=== PATIENT | female | born 1980 | race Caucasian/White ===

== ENCOUNTER 2019-12-24 11:37 | Emergency (ER) | payer MEDICAID, SELFPAY ==
[2019-12-24 11:56] VITALS: BP 113/85; PULSE 78; RESP 18; TEMP 36.8; O2SAT 98; BMI 25.8
--- NOTE | 2019-12-24 12:07 | ED_ITS ---
HPI - General Adult General: Chief complaint: General Medical Stated complaint: [facility] Time Seen by Provider: 12/24/19 12:06 Source: patient Mode of arrival: ambulatory Limitations: no limitations History of Present Illness: HPI narrative: Patient is a resident of [facility]. Patient reports that she has been without her normal dose of levothyroxine. Patient states that when she was discharged from a stress unit she was released on 75 mcg of thyroid medication. Patient states that usually she takes 200 mcg. Patient is wanting evaluated to get her levothyroxine adjusted due to feelings of chilling and feeling tired. Patient was out 3 to 4 days prior to being started on the 75 mcg of levothyroxine. Patient has been on levothyroxine for the last 2 days. Review of Systems General: Reports: 10 or more systems reviewed and unremarkable except in HPI and below Const: Reports: chills and fatigue PFS ED PFSH: Social History Smoking and tobacco status: current every day smoker Female Reproductive History: Date of last menstrual period: 12/24/19 Physical Exam Const: COMMON NORMALS: no acute distress and patient oriented x3 GENERAL APPEARANCE: cooperative HENMT: COMMON NORMALS: normocephalic and Normal external nose present HEAD & SCALP: normal to inspection and normocephalic NOSE: Normal external nose present MOUTH: Normal oral and palatal mucosa present THROAT: posterior oropharynx normal Eye: GENERAL EYE: appearance normal, both eyes and all related structures Neck/C-Spine: COMMON NORMALS: full ROM Chest: COMMONS NORMALS: normal inspection of the chest Resp: COMMON NORMALS: normal respiratory effort EFFORT & INSPECTION: Yes able to speak in complete sentences Cardio: COMMON NORMALS: regular rate and regular rhythm RATE: regular rate RHYTHM: regular rhythm GI: COMMON NORMALS: non-tender : COMMON NORMALS: Yes no CVA tenderness BLADDER/KIDNEY EXAM: Yes no CVA tenderness Back/Pelvis: COMMON NORMALS: no CVA tenderness and thoracic and lumbar spine normal to inspection Extremity: COMMON NORMALS: normal to inspection Neuro: COMMON NORMALS: patient oriented x3 and moves all extremities Psych: COMMON NORMALS: mental status grossly normal and cooperative Skin: COMMON NORMALS: no rashes or lesions noted GENERAL SKIN EXAM: no rashes or lesions noted Course Vital Signs: Vital signs: Vital Signs Temperature 98.3 F 12/24/19 11:56 Pulse Rate 78 12/24/19 11:56 Respiratory Rate 18 12/24/19 11:56 Blood Pressure 113/85 12/24/19 11:56 Pulse Oximetry 98 12/24/19 11:56 MDM - General Adult MDM Narrative: Medical decision making narrative: Patient comes in for adjustment of levothyroxine due to chills and fatigue. Patient reported history of thyroid removal and changes in medication which she thought was not appropriate to her care. Patient had recently got out of the stress unit and medications were changed from levothyroxine 200 mcg to levothyroxine 75 mcg. Exam notes respirations are even lungs are clear to auscultation. Vital signs are normal. Patient appears well. Differential diagnosis includes hypothyroidism, malingering, substance abuse. TSH showed a level of 11.63. We will adjust levothyroxine to 150 mcg daily. Patient should recheck in 1 to 2 weeks with primary care for repeat lab work and medication changes as needed. Lab Data: Labs: Lab Results 12/24/19 12/24/19 Range/Units 12:20 12:20 WBC 5.9 (4.0-10.0) 10^3/ uL RBC 4.14 (4.1-5.3) 10^6/u L Hgb 12.5 (11.5-15.3) g/dL Hct 39.8 (37.0-47.0) % MCV 96.1 (81-99) fL MCH 30.2 (28.0-34.0) pg MCHC 31.4 (30.0-36.0) g/dL RDW 12.0 L (12.1-15.1) % Plt Count 285 (130-400) 10^3/c mm MPV 9.9 (7.4-10.4) fL Neut % (Auto) 39.1 % Lymph % (Auto) 46.1 % [place] % (Auto) 7.8 % Eos % (Auto) 5.6 % Baso % (Auto) 1.2 % Neut # (Auto) 2.3 (1.8-7.7) 10^3/u L Lymph # (Auto) 2.7 (0.8-4.8) 10^3/u L [place] # (Auto) 0.5 (0.2-0.9) 10^3/u L Eos # (Auto) 0.3 (0.0-0.8) 10^3/u L Baso # (Auto) 0.1 (0.0-0.1) 10^3/u L Nucleated RBC % (a uto) 0 % Nucleated RBCs # 0.0 /100WBC Sodium 139 (136-145) mmol/L Potassium 4.2 (3.5-5.1) mmol/L Chloride 107 (98-107) mmol/L Carbon Dioxide 24 (22-29) mmol/L Anion Gap 12.2 (5-19) BUN 10 (6-20) mg/dL Creatinine 0.8 (0.5-0.9) mg/dL GFR Calculation 79.4 L (90-130) mL/min Glucose 81 (65-115) mg/dL Calculated Osmolal ity 283 L (285-295) mOsm/k g Calcium 9.0 (8.5-10.5) mg/dL TSH 11.63 H (0.27-4.20) uIU/ mL Discharge Plan Discharge Patient Disposition: Home, Self-Care Clinical Impression: Hypothyroidism (acquired) Condition: Stable Prescriptions: New levothyroxine 150 mcg tablet 150 mcg PO DAILY Qty: 30 RF: 1 Discontinued levothyroxine 75 mcg Tablet 75 mcg PO DAILY RF: 0 No Action Klonopin 1 mg Tablet 1 mg PO BID RF: 0 Lamictal 25 mg Tablet 25 mg PO BID RF: 0 Discharge Orders: Discharge Order (Routine); Ordered 12/24/19 Ordered By: Lauro Lee Discharge Diet: Usual diet Discharge Activity: Increase activity as tolerated Activity Restrictions/Additional Instructions: Take levothyroxine on empty stomach 30 minutes prior to eating in the morning. Drink plenty of fluids with medications. Follow-up with primary care in 1 week for recheck on medication levels. Return to the ER for new concerns. Coding Level of Care Code ED File System Installer for [facility] Exam Comprehensive
[2019-12-24 12:28] LABS: Basophils # 0.1 10^3/uL (0.0-0.1); Basophils % 1.2 %; Eosinophils # 0.3 10^3/uL (0.0-0.8); Eosinophils % 5.6 %; Hematocrit 39.8 % (37.0-47.0); Hemoglobin 12.5 g/dL (11.5-15.3); Lymphocytes # 2.7 10^3/uL (0.8-4.8); Lymphocytes % 46.1 %; Mean Corpuscular HGB Conc 31.4 g/dL (30.0-36.0); Mean Corpuscular Hemoglobin 30.2 pg (28.0-34.0); Mean Corpuscular Volume 96.1 fL (81-99); Mean Platelet Volume 9.9 fL (7.4-10.4); Monocytes # 0.5 10^3/uL (0.2-0.9); Monocytes % 7.8 %; Neutrophils # 2.3 10^3/uL (1.8-7.7); Neutrophils % 39.1 %; Nucleated Red Blood Cells % 0 %; Platelet Count 285 10^3/cmm (130-400); Red Blood Count 4.14 10^6/uL (4.1-5.3); White Blood Count 5.9 10^3/uL (4.0-10.0)
[2019-12-24 12:52] LABS: Anion Gap 12.2 (5-19); Blood Urea Nitrogen 10 mg/dL (6-20); Carbon Dioxide 24 mmol/L (22-29); Chloride 107 mmol/L (98-107); Glomerular Filtration Rate 79.4 mL/min (90-130); Glucose 81 mg/dL (65-115); Osmolality Calculated 283 mOsm/kg (285-295); Potassium 4.2 mmol/L (3.5-5.1); Sodium 139 mmol/L (136-145); Thyroid Stimulating Hormone 11.63 uIU/mL (0.27-4.20)
[2019-12-24 13:36] VITALS: TEMP 36.6
== END 2019-12-24 13:37 | disposition home or self-care (01) ==
PROVIDERS: Emergency Provider Nurse Practitioner Family
DX: E03.8 Other specified hypothyroidism (principal); F17.210 Nicotine dependence, cigarettes, uncomplicated
CPT/HCPCS: 12345; 36415; 80048; 84443; 85025; 99281; 99282